=== PATIENT | female | born 1990 | race Caucasian/White ===

== ENCOUNTER 2018-01-16 22:44 | Emergency (ER) | payer OTHER ==
[~2018-01-16] VITALS: Ht 162.6 cm; Wt 50.8 kg
[2018-01-16 23:13] VITALS: BP 143/97
== END 2018-01-17 00:45 | disposition left against medical advice (07) ==
LOC: ER 22:44
DX: H57.8 Other specified disorders of eye and adnexa (principal); Z53.21 Procedure and treatment not carried out due to patient leaving prior to being seen by health care provider